=== PATIENT | male | born 1975 ===

== ENCOUNTER 2024-09-27 12:15 | Inpatient (IN) | payer OTHER ==
[~2024-09-27] VITALS: Ht 177.8 cm; Wt 70.3 kg
[~2024-09-27 12:15] MED LIST: AMPYRA10 MG PO; ANTIVERT PO; BACLOFEN10 MG PO; COZAAR100 MG PO; PROTONIX40 MG PO
[2024-09-27] MEDS ORDERED: PEPCID AC20 MG PO (14:02)
[2024-10-04] MEDS ORDERED: ANTIVERT25 M2 PO (11:48)
[2024-10-04] MEDS ORDERED: METRONIDAZOLE/SODIUM CHLORIDE 500 MG/100 ML PIGGYBACK IV ONE (12:06)
[2024-10-04] MEDS ORDERED: CEFTRIAXONE SODIUM 2,000 MG VIAL ONE (12:06)
[2024-10-04] MEDS ORDERED: LIDOCAINE HCL 1%/EPINEPHRINE 20ML VIAL IJ ONE (12:15)
[2024-10-04] MEDS ORDERED: HEMOSTATIC MATRIX 1 KIT KIT TOP ONE (12:15)
[2024-10-04] MEDS ORDERED: BUPIVACAINE HCL/MPF 0.5% 30ML VIAL ONE (12:15)
[2024-10-04] MEDS ORDERED: POVIDONE-IODINE 118 ML BOTT TOP ONE (12:15)
[2024-10-04] MEDS ORDERED: DIBUCAINE 30 GM TUBE ONE (12:15)
[2024-10-04] MEDS ORDERED: ONDANSETRON HCL 2 MG/ML VIAL IV PRN (13:00)
[2024-10-04] MEDS ORDERED: OxyCODONE HCL 5 MG TABLET (ROXICODONE) PO PRN (13:00)
[2024-10-04] MEDS ORDERED: DEXTROSE 50 % IN WATER 0.5 G/ML DISP.SYRIN IV PRN (13:00)
[2024-10-04] MEDS ORDERED: HYOSCYAMINE SULFATE 0.125 MG TAB.SUBL SL SCH (13:00)
[2024-10-04] MEDS ORDERED: 0.9 % SODIUM CHLORIDE 1,000 ML IV SCH (13:00)
[2024-10-04] MEDS ORDERED: MORPHINE SULFATE 4 MG/ML CARTRIDGE IV PRN (13:00)
[2024-10-04] MEDS ORDERED: ACETAMINOPHEN 500 MG GEL..CAP PO SCH (14:00)
[2024-10-04 15:55] LABS: ABG PO2 112.1 mmHg (80-100); ABG pCO2 43.2 mmHg (35-45); BASE EXCESS -0.3 mmol/l; SaO2 98.2 %; Tco2 26.3 mmol/l
[2024-10-04 16:00] VITALS: BP 133/85; O2SAT 99
[2024-10-04 16:13] LABS: allen test SATISFACTORY; o2 36 %; puncture site RADIAL LEFT
[2024-10-04 16:24] LABS: HEMATOCRIT 40.8 % (39.0-48.0); HEMOGLOBIN 13.8 g/dL (13-16.00); MEAN CELL VOLUME 94.7 fL (80.0-100.00); MEAN CORPUSCULAR HEMOGLOBIN 32.1 pg (27.00-32.0); MEAN CORPUSCULAR HGB CONC 33.9 g/dl (32.0-36.0); PLATELET COUNT 231 K/uL (150-450); RED CELL DISTRIBUTION WIDTH 12.8 % (11.5-14.5)
[2024-10-04 16:45] LABS: ALBUMIN 3.5 gm/dL (3.4-5.0); CALCIUM 8.7 mg/dL (8.5-10.1); CREATININE SERUM 0.74 mg/dL (0.70-1.30); GFR 111.51; MAGNESIUM 1.8 mg/dL (1.8-2.4); PHOSPHOROUS 3.8 mg/dL (2.5-4.9); POTASSIUM 4.06 mEq/L (3.5-5.1)
[2024-10-04] MEDS ORDERED: METRONIDAZOLE/SODIUM CHLORIDE 500 MG/100 ML PIGGYBACK IV SCH (17:00)
[2024-10-04] MEDS ORDERED: GABAPENTIN 300 MG CAPSULE PO SCH (17:00)
[2024-10-04] MEDS ORDERED: POLYETHYLENE GLYCOL 3350 17 GM BLIST.PACK PO SCH (17:00)
[2024-10-04] MEDS ORDERED: LEVALBUTEROL HCL 0.63 MG/3 ML SOLUTION IH SCH (18:00)
[2024-10-04] MEDS ORDERED: CELECOXIB 200 MG CAPSULE PO SCH (21:00)
[2024-10-04] MEDS ORDERED: FAMOTIDINE/PF 20 MG/2 ML VIAL IV PUSH SCH (21:00)
[2024-10-05 00:39] VITALS: BP 104/66; O2SAT 96
[2024-10-05 06:46] LABS: HEMATOCRIT 43.1 % (39.0-48.0); HEMOGLOBIN 14.9 g/dL (13-16.00); MEAN CELL VOLUME 94.6 fL (80.0-100.00); MEAN CORPUSCULAR HEMOGLOBIN 32.6 pg (27.00-32.0); MEAN CORPUSCULAR HGB CONC 34.5 g/dl (32.0-36.0); PLATELET COUNT 220 K/uL (150-450); RED BLOOD COUNT 4.56 M/uL (4.00-6.00); RED CELL DISTRIBUTION WIDTH 12.7 % (11.5-14.5)
[2024-10-05 07:23] LABS: ALBUMIN 3.7 gm/dL (3.4-5.0); CALCIUM 8.9 mg/dL (8.5-10.1); CREATININE SERUM 0.9 mg/dL (0.70-1.30); GFR 88.96; MAGNESIUM 1.9 mg/dL (1.8-2.4); PHOSPHOROUS 3.1 mg/dL (2.5-4.9); POTASSIUM 4.45 mEq/L (3.5-5.1)
[2024-10-05 08:00] VITALS: BP 119/76; O2SAT 98
[2024-10-05] MEDS ORDERED: TRAM1TAB98 PO (08:27)
[2024-10-05] MEDS ORDERED: LOSARTAN POTASSIUM 100 MG TABLET PO SCH (09:00)
[2024-10-05] MEDS ORDERED: ENOXAPARIN SODIUM 40 MG/0.4 ML SYRINGE SUBCUTANEO SCH (17:00)
[2024-10-06] MEDS ORDERED: ENOXAPARIN SODIUM 40 MG/0.4 ML SYRINGE SUBCUTANEO SCH (09:00)
== END 2024-10-05 14:24 | disposition home or self-care (01) | DRG 376 ==
LOC: SURH 10-04 11:00 → O/R 10-04 11:00 → SURH 10-04 12:15
PROVIDERS: Internal Medicine Geriatric Medicine; ADMIT Surgery; ATTEND Surgery
PROC: 3E0T3BZ Introduction of Anesthetic Agent into Peripheral Nerves and Plexi, Percutaneous Approach (ICD-10-PCS; 2024-10-04)
PROC: 0DBP8ZZ Excision of Rectum, Via Natural or Artificial Opening Endoscopic (ICD-10-PCS; principal; 2024-10-04 18:00)
DX: C20 Malignant neoplasm of rectum (principal); D12.8 Benign neoplasm of rectum; I11.9 Hypertensive heart disease without heart failure; D37.5 Neoplasm of uncertain behavior of rectum; J98.4 Other disorders of lung; G35 Multiple sclerosis
CPT/HCPCS: 0184T; 64430